=== PATIENT | male | born 1990 | race Two or more races ===

== ENCOUNTER 2020-09-20 06:16 | Outpatient (CLI) | payer OTHER | END 2020-09-20 07:27 | disposition home or self-care (01) | LOC: LAB 06:16 | PROVIDERS: ATTEND Internal Medicine Endocrinology, Diabetes & Metabolism | DX: Z20.828 Contact with and (suspected) exposure to other viral communicable diseases (principal) ==

== ENCOUNTER 2020-10-14 07:37 | Outpatient (CLI) | payer OTHER | END 2020-10-14 07:45 | disposition home or self-care (01) | LOC: LAB 07:37 | DX: Z03.818 Encounter for observation for suspected exposure to other biological agents ruled out (principal) ==